=== PATIENT | male | born 1960 | race Two or more races ===

== ENCOUNTER 2020-10-15 22:52 | Emergency (ER) | payer SELFPAY ==
[~2020-10-15] VITALS: Ht 177.8 cm; Wt 100.0 kg
[2020-10-15 23:23] LABS: BASO # 0.1 x10^3/uL (0.0-0.2); BASO % 1 % (0-3); EOS # 0.1 x10^3/uL (0.0-0.7); EOS % 1 % (0-3); HEMATOCRIT 47.2 % (39.0-53.0); HEMOGLOBIN 16.2 g/dL (13.0-17.5); LYMPH # 4.8 x10^3/uL (1.0-4.8); LYMPH % 45 % (24-48); MEAN CORPUSCULAR HEMOGLOBIN 32 pg (25-35); MEAN CORPUSCULAR HGB CONC 34 g/dL (31-37); MEAN CORPUSCULAR VOLUME 93 fL (79-100); MONO # 0.7 x10^3/uL (0.0-1.1); MONO % 7 % (0-9); NEUT # 4.9 x10^3/uL (1.8-7.7); NEUT % 46 % (31-73); PLATELET COUNT 288 x10^3/uL (140-400); RED BLOOD COUNT 5.08 x10^6/uL (4.30-5.70); RED CELL DISTRIBUTION WIDTH 13.2 % (11.5-14.5); WHITE BLOOD COUNT 10.7 x10^3/uL (4.0-11.0)
[2020-10-15] MEDS ORDERED: ASPIRIN 325 MG TABLET PO ONE (23:30)
[2020-10-15 23:33] LABS: CALCIUM 10.2 mg/dL (8.5-10.1); POTASSIUM 4.1 mmol/L (3.5-5.1)
[2020-10-15 23:39] LABS: ALBUMIN 4.9 g/dL (3.4-5.0); ALBUMIN/GLOBULIN RATIO 1.3 (1.0-1.7); MAGNESIUM 2.2 mg/dL (1.8-2.4); TOTAL BILIRUBIN 0.7 mg/dL (0.2-1.0); TOTAL PROTEIN 8.8 g/dL (6.4-8.2)
[2020-10-16] MEDS ORDERED: IV NORMAL SALINE 1000ML BAG 1,000 ML IV ONE
--- NOTE | 2020-10-16 | PHYS DOC ---
Past Medical History Past Medical History: High Cholesterol Past Surgical History: No Surgical History Smoking Status: Former Smoker Alcohol Use: Occasionally General Adult EDM: Chief Complaint: CHEST PAIN HPI: HPI: Patient is a 59 year old male who presents POV with a 5 day history of chest pain and pressure. He has a PMH significant for high cholesterol and is a former smoker. Today he reports a 5 days history of intermittent left sided 5-6/10 chest pressure and new onset tingling in his jaw. He has no history of same. He states the pressure worsens when laying down and after eating. It improves when he is walking. He has taken 2 aspirin and nexium today w/o relief. He denies nausea, vomiting, fever, chills, cough, shortness of breath, sore throat, swelling in legs, diarrhea, muscles aches. He has no known sick contacts. He reports he has experienced a similar episode where he had pain in his chest in the past and was given an antacid which provided symptomatic relief. Review of Systems: Review of Systems: Constitutional: Denies fever or chills HENT: Denies nasal congestion or sore throat, headache Respiratory: Denies cough or shortness of breath Cardiovascular: Admits chest pain. Denies palpitations GI: Denies abdominal pain, nausea, or vomiting, diarrhea. Admits constipation Musculoskeletal: Denies back pain or joint pain Integument: Denies rash or skin lesions Neurologic: Denies headache, focal weakness. Admits tingling in jaw Complete systems were reviewed and found to be within normal limits, except as documented in this note. Heart Score: HEART Score for Chest Pain: HEART Score for Chest Pain Response (Comments) Value History Moderately Suspicious 1 ECG Normal 0 Age >45 - < 65 1 Risk Factors 1 or 2 Risk Factors 1 Total 3 Risk Factors: Risk Factors: DM, Current or recent (<one month) smoker, HTN, HLP, family history of CAD, obesity. Risk Scores: Score 0 - 3: 2.5% MACE over next 6 weeks - Discharge Home Score 4 - 6: 20.3% MACE over next 6 weeks - Admit for Clinical Observation Score 7 - 10: 72.7% MACE over next 6 weeks - Early Invasive Strategies Current Medications: Current Medications Medications (Trade) Dose Ordered Sig/[facility] Start Time Stop Time Status Last Admin Dose Admin Aspirin (Aquilino Aspirin) 325 mg 1X ONCE 10/15/20 23:30 1/16/21 23:31 DC Sodium Chloride 1,000 ml @ 1,000 mls/hr 1X ONCE 10/16/20 00:00 10/16/20 00:59 Allergies: Allergies: Allergies Coded Allergies Type Severity Reaction Last Updated Verified No Known Drug Allergies 10/15/20 No Physical Exam: PE: Constitutional: Well developed, overweight, no acute distress, non-toxic appearance HENT: Normocephalic, atraumatic Eyes:PERRL EOMI, conjunctiva normal, no discharge Neck: Normal range of motion, no tenderness, supple, no bruits, no JVD CV: RRR no murmur Lungs & Thorax: No respiratory distress, equal chest rise and fall, CTAB Abdomen: Soft, no tenderness Skin: Warm, dry, no erythema, no rash Back: No tenderness, no Extremities: No tenderness, ROM intact, no edema Neurologic: Alert and oriented X 3, normal motor function, no focal deficits noted, normal sensory function but endorses tingling in jaw Psychologic: Affect normal, judgment normal Current Patient Data: Labs: Laboratory Tests Test 10/15/20 23:10 White Blood Count 10.7 x10^3/uL (4.0-11.0) Red Blood Count 5.08 x10^6/uL (4.30-5.70) Hemoglobin 16.2 g/dL (13.0-17.5) Hematocrit 47.2 % (39.0-53.0) Mean Corpuscular Volume 93 fL (79-100) Mean Corpuscular Hemoglobin 32 pg (25-35) Mean Corpuscular Hemoglobin Concent 34 g/dL (31-37) Red Cell Distribution Width 13.2 % (11.5-14.5) Platelet Count 288 x10^3/uL (140-400) Neutrophils (%) (Auto) 46 % (31-73) Lymphocytes (%) (Auto) 45 % (24-48) Monocytes (%) (Auto) 7 % (0-9) Eosinophils (%) (Auto) 1 % (0-3) Basophils (%) (Auto) 1 % (0-3) Neutrophils # (Auto) 4.9 x10^3/uL (1.8-7.7) Lymphocytes # (Auto) 4.8 x10^3/uL (1.0-4.8) Monocytes # (Auto) 0.7 x10^3/uL (0.0-1.1) Eosinophils # (Auto) 0.1 x10^3/uL (0.0-0.7) Basophils # (Auto) 0.1 x10^3/uL (0.0-0.2) Sodium Level 141 mmol/L (136-145) Potassium Level 4.1 mmol/L (3.5-5.1) Chloride Level 101 mmol/L (98-107) Carbon Dioxide Level 28 mmol/L (21-32) Anion Gap 12 (6-14) Blood Urea Nitrogen 13 mg/dL (8-26) Creatinine 1.0 mg/dL (0.7-1.3) Estimated GFR (Cockcroft-Gault) 77.0 BUN/Creatinine Ratio 13 (6-20) Glucose Level 105 mg/dL (70-99) H Calcium Level 10.2 mg/dL (8.5-10.1) H Magnesium Level 2.2 mg/dL (1.8-2.4) Total Bilirubin 0.7 mg/dL (0.2-1.0) Aspartate Amino Transferase (AST) 25 U/L (15-37) Alanine Aminotransferase (ALT) 34 U/L (16-63) Alkaline Phosphatase 52 U/L (46-116) Total Protein 8.8 g/dL (6.4-8.2) H Albumin 4.9 g/dL (3.4-5.0) Albumin/Globulin Ratio 1.3 (1.0-1.7) Lipase 75 U/L (73-393) Laboratory Tests 10/15/20 23:10 Laboratory Tests 10/15/20 23:10 Vital Signs: Vital Signs Date Time Temp Pulse Resp B/P (MAP) Pulse Ox O2 Delivery O2 Flow Rate FiO2 10/15/20 22:55 98.1 63 18 186/90 (122) 98 Room Air 98.1 EKG: EKG: @2308 Sinus rhythm at 64 BPM, Right bundle branch block, QRS 126, QT/QTc 426/444 Radiology/Procedures: Radiology/Procedures: PROCEDURE: CHEST AP ONLY EXAM: XR CHEST 1V 10/16/2020 12:38 AM CLINICAL INDICATION: Chest pain COMPARISON: None TECHNIQUE: AP upright view of the chest FINDINGS: The heart and mediastinum are normal. Lungs are well-expanded and clear. No consolidation, pleural effusion, or pneumothorax. Pulmonary vascularity is normal. The thoracic skeleton is intact. IMPRESSION: Normal chest radiograph. Electronically signed by: Lucy Goldstein MD (10/16/2020 1:22 AM) [id number] Course & Med Decision Making: Course & Med Decision Making Pertinent Labs and Imaging studies reviewed. (See chart for details) This 59 yo male presented POV with a 5 day history of chest pressure and tingling in his jaw. He has a PMH significant for hypercholesterolemia and obesity, and is a former smoker. His chest pain was atypical and improved with exercise. Heart score 3. An EKG was unremarkable for acute coronary event. Troponin within normal limit. Ddimer within normal limit. Chest Xray unremarkable for cardiopulmonary pathology. He had taken 2 aspirin prior to arrival. He endorses a prior history of symptomatic relief for similar pain with antacid. He was provided with a one time dose of ketorolac and famotidine for symptomatic relief. Discussed with patient the importance of establishing care and following with a PCP for preventative health. Patient provided with local GI, impregnator helper and PCP providers. Patient stable for discharge with outpatient follow-up with PCP. Discussed findings and plan with patient, who acknowledges understanding and agreement. Ila Disclaimer: Ila Disclaimer: This electronic medical record was generated, in whole or in part, using a voice recognition dictation system. Departure Departure Impression: Primary Impression: Atypical chest pain Disposition: 01 DC HOME SELF CARE/HOMELESS Condition: STABLE Referrals: BRIANNA CUNNINGHAM MD, SCOTT S MD Patient Instructions: Chest Pain (Nonspecific), [id number], Gastritis, Adult, [id number] Scripts Famotidine (PEPCID) 20 Mg Tablet 20 MG PO BID, #20 TAB Prov: YANET HECK DO 10/16/20 YANET HECK DO Oct 16, 2020 00:00
[2020-10-16] MEDS ORDERED: KETOROLAC 15 MG/ML VIAL. IVP ONE (01:00)
[2020-10-16 01:13] VITALS: BP 139/71
[2020-10-16] MEDS ORDERED: FAMO-63 PO (01:24)
--- NOTE | 2020-10-16 01:25 | RAD ---
EXAM: XR CHEST 1V 10/16/2020 12:38 AM CLINICAL INDICATION: Chest pain COMPARISON: None TECHNIQUE: AP upright view of the chest FINDINGS: The heart and mediastinum are normal. Lungs are well-expanded and clear. No consolidatio n, pleural effusion, or pneumothorax. Pulmonary vascularity is normal. The thoracic skeleton is int act. IMPRESSION: Normal chest radiograph. Electronically signed by: Lucy Goldstein MD (10/16/2020 1:22 AM) [id number]
[2020-10-16] MEDS ORDERED: FAMOTIDINE 20 MG/2 ML VIAL IVP ONE (02:00)
== END 2020-10-16 01:38 | disposition home or self-care (01) ==
LOC: ER 22:52
DX: R07.89 Other chest pain (principal); E78.00 Pure hypercholesterolemia, unspecified; Z87.891 Personal history of nicotine dependence
CPT/HCPCS: 36415; 71045; 80053; 82553; 83690; 83735; 83880; 84484; 85025; 85379; 96361; 96374; 96375; 99285; J1885; J3490; J7030